=== PATIENT | female | born 1965 | race Caucasian/White ===

== ENCOUNTER 2023-03-31 10:18 | Emergency (ER) | payer MEDICARE, MEDICAID ==
[2023-03-31 10:45] VITALS: O2SAT 98
[2023-03-31] MEDS ORDERED: CEFEPIME 2 GM in SODIUM CHLORIDE 0.9% MINIBAG 100 ML IV STA (10:49)
[2023-03-31 11:10] LABS: BASOPHILS # (AUTO) 0.1 10^3/uL (0.0-0.1); BASOPHILS % (AUTO) 0.6 %; EOSINOPHILS # (AUTO) 0.2 10^3/uL (0.0-0.7); EOSINOPHILS % (AUTO) 1.8 %; HCT - HEMATOCRIT 41.3 % (37.0-47.0); HGB - HEMOGLOBIN 12.8 g/dL (12.0-16.0); LYMPHOCYTES # (AUTO) 1.5 10^3/uL (1.5-3.5); LYMPHOCYTES % (AUTO) 16.4 %; MEAN CORPUSCULAR HEMOGLOBIN 27.9 pg (27.0-31.0); MEAN PLATELET VOLUME 8.9 fL (7.9-10.8); MONOCYTES # (AUTO) 0.8 10^3/uL (0.0-1.0); MONOCYTES % (AUTO) 8.7 %; NEUTROPHILS # (AUTO) 6.8 10^3/uL (1.5-6.6); NEUTROPHILS % (AUTO) 72.2 %; PLT - PLATELET COUNT 472 10^3/uL (130-450); RED BLOOD COUNT 4.59 10^6/uL (4.20-5.40); RED CELL DISTRIBUTION WIDTH 12.5 % (12.0-15.0); WHITE BLOOD COUNT 9.4 x10^3/uL (4.8-10.8)
[2023-03-31 11:27] LABS: ALBUMIN 3.8 g/dL (3.2-5.5); BILIRUBIN,TOTAL 0.8 mg/dL (0.2-1.0); CALCIUM 9.2 mg/dL (8.5-10.3); CREATININE 0.6 mg/dL (0.6-1.3); POTASSIUM 4.7 mmol/L (3.5-4.5); TOTAL PROTEIN 7.7 g/dL (6.4-8.9)
[2023-03-31] MEDS ORDERED: VANCOMYCIN INJ 1 GM, VANCOMYCIN INJ 500 MG in SODIUM CHLORIDE 0.9% 500 ML IV ONE (11:30)
--- NOTE | 2023-03-31 11:34 | XRAY Report ---
PROCEDURE: Foot 3+V RT INDICATIONS: Diabetic foot wound TECHNIQUE: 3 views of the foot were acquired. COMPARISON: None. FINDINGS: Bones: No fractures or dislocations. No suspicious bony lesions. Soft tissues: Soft tissue swelling over the forefoot near the base of the second digit. Vascular mekhi cifications are present. IMPRESSION: Soft tissue swelling without fracture or osseous erosions identified Reviewed by: Moustapha Yates MD on 03/31/2023 10:33 AM [place] Approved by: Moustapha Yates MD on 03/31/2023 10:33 AM [place] Station ID: [id number]
--- NOTE | 2023-03-31 11:36 | ED Physician Documentation ---
History of Present Illness - Stated complaint Stated Complaint: RT FT TOE BLACK/SWOLLEN - Chief complaint Chief Complaint: Ext Problem - History obtained from History obtained from: Patient - Additonal information Additional information: 57-year-old female with history of diabetes presents by private vehicle from home for gradually worsening foot wound on the right-hand side. Patient states she has agoraphobia and significant difficulty in keeping her primary care appointments due to her agoraphobia. She has been treating a callus on the bottom of her right foot with local wound care at home. However over the last several days she has noticed redness and swelling from her second and third toes extending to the midfoot. Denies fevers, chills. Denies pain. Review of Systems Constitutional: denies: Fever, Chills Cardiac: denies: Chest pain / pressure, Palpitations, Calf pain Respiratory: denies: Dyspnea, Cough, Wheezing GI: denies: Abdominal Pain, Nausea, Vomiting Skin: reports: Other (callus, erythema, swelling) Musculoskeletal: denies: Neck pain, Back pain, Extremity pain, Joint pain, Extremity swelling Neurologic: denies: Generalized weakness, Focal weakness, Numbness PD PAST MEDICAL HISTORY - Past Medical History Past Medical History: Yes Cardiovascular: Hypertension, High cholesterol Endocrine/Autoimmune: Type 2 diabetes Psych: Depression, Anxiety, Other Derm: Eczema - Past Surgical History Past Surgical History: Yes General: Cholecystectomy 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 HEENT: Tonsil/Adenoidectomy - Present Medications Home Medications: Ambulatory Orders Medication Instructions Recorded Confirmed Doxycycline Hyclate 100 mg PO BID 14 Days #28 tab 03/31/23 Empagliflozin [Jardiance] 1 tab PO DAILY 03/31/23 03/31/23 FLUoxetine [PROzac] 1 cap PO DAILY 03/31/23 03/31/23 Gabapentin [Neurontin] 1 cap PO DAILY 03/31/23 03/31/23 Lisinopril [Zestril] 1 tab PO DAILY 03/31/23 03/31/23 Prazosin [Minipress] 1 cap PO DAILY 03/31/23 03/31/23 Propranolol [Inderal] 1 tab PO DAILY 03/31/23 03/31/23 Simvastatin [Zocor] 1 tab PO DAILY 03/31/23 03/31/23 cephALEXin [Keflex] 500 mg PO Q6H 14 Days #56 cap 03/31/23 glyBURIDE [Glyburide] 1 tab PO DAILY 03/31/23 03/31/23 metFORMIN [Glucophage] 1 tab PO DAILY 03/31/23 03/31/23 - Allergies Allergies/Adverse Reactions: Allergies Allergy/AdvReac Type Severity Reaction Status Date / Time No Known Drug Allergies Allergy Verified 03/31/23 10:38 - Social History Does the pt smoke?: No Smoking Status: Never smoker Does the pt drink ETOH?: No Does the pt have substance abuse?: No - Immunizations Immunizations are current?: Yes - POLST Patient has POLST: No PD ED PE NORMAL - Vitals Vital signs reviewed: Yes - General General: Alert and oriented X 3, No acute distress, Well developed/nourished - Neck Neck: Supple, no meningeal sign - Cardiac Cardiac: RRR, Strong equal pulses - Respiratory Respiratory: No respiratory distress, Clear bilaterally - Abdomen Abdomen: Soft, Non tender - Derm Derm: Warm and dry, Other (callus over ball of R foot. 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, No motor deficit, Normal speech - Psych Psych: Normal mood, Normal affect Results - Vitals Vitals: Oxygen O2 Source Room air - Labs Labs: Microbiology 03/31/23 12:35 Wound Culture - Preliminary Foot - Right Laboratory Tests 03/31/23 03/31/23 11:00 11:00 WBC 9.4 RBC 4.59 Hgb 12.8 Hct 41.3 MCV 90.0 MCH 27.9 MCHC 31.0 L RDW 12.5 Plt Count 472 H MPV 8.9 Neut # (Auto) 6.8 H Lymph # (Auto) 1.5 [place] # (Auto) 0.8 Eos # (Auto) 0.2 Baso # (Auto) 0.1 Absolute Nucleated RBC 0.00 Nucleated RBC % 0.0 Sodium 131 L Potassium 4.7 H Chloride 96 L Carbon Dioxide 27 Anion Gap 8.0 BUN 13 Creatinine 0.6 Estimated GFR (MDRD) 103 Glucose 188 H Calcium 9.2 Total Bilirubin 0.8 AST 10 ALT 7 L Alkaline Phosphatase 88 Total Protein 7.7 Albumin 3.8 Globulin 3.9 Albumin/Globulin Ratio 1.0 PD Medical Decision Making - ED course Complexity details: reviewed results, re-evaluated patient, considered differential, d/w patient ED course: Worsening diabetic ulcer. Patient is neurovascularly intact. Concern is for underlying osteomyelitis. Will order labs, wound culture, x-ray imaging of the foot. Empiric antibiotics ordered. Laboratory work is reviewed, no significant abnormalities. X-ray is negative for signs of osteomyelitis. Given that this wound has been ongoing for 6 months and there only appears to be local cellulitis without underlying bone involvement we will trial patient without patient antibiotics. She was given vancomycin and cefepime in the emergency department and tolerated these medications well, wound culture has been sent to lab for analysis. Patient was advised of the extreme portance of following up with both primary care and podiatry as she is at high risk of osteomyelitis and subsequent amputation if she does not get her wound under control. Patient expressed understanding and she states that she will call first thing during normal business hours to set up a podiatry appointment. Keflex and doxycycline sent to pharmacy of choice. Departure - Departure Disposition: 01 Home, Self Care Clinical Impression: Diabetic ulcer of right foot Qualifiers: Diabetic foot ulcer location: unspecified part of foot Diabetes mellitus type: type 2 Non-pressure ulcer stage: with fat layer exposed Qualified Code(s): E11.621 - Type 2 diabetes mellitus with foot ulcer Condition: Stable Instructions: Wound Care Prescriptions: Doxycycline Hyclate 100 mg PO BID 14 Days #28 tab cephALEXin [Keflex] 500 mg PO Q6H 14 Days #56 cap Forms: PCP List Discharge Date/Time: 03/31/23 14:05
[2023-03-31 16:05] VITALS: BP 128/82
--- NOTE | 2023-04-03 12:11 | ED Physician Documentation ---
ED Addendum - Addendum Addendum: 04/03/23 12:11 Cultures reviewed, Keflex and doxycycline are appropriate. No changes.
== END 2023-03-31 14:05 | disposition home or self-care (01) ==
LOC: ED 10:18
DX: E11.621 Type 2 diabetes mellitus with foot ulcer (principal); L97.412 Non-pressure chronic ulcer of right heel and midfoot with fat layer exposed; Z79.84 Long term (current) use of oral hypoglycemic drugs
CPT/HCPCS: 36415; 73630; 80053; 85025; 87070; 87205; 96365; 96375; 99284; J3370; 87181